=== PATIENT | female | born 1965 | race Caucasian/White ===

== ENCOUNTER → 2016-12-10 | Outpatient (CLI) | payer BC | LOC: MC.RAD 08:49 | DX: Z12.31 Encounter for screening mammogram for malignant neoplasm of breast (principal) ==

== ENCOUNTER → 2016-12-15 | Outpatient (CLI) | payer BC | LOC: MC.RAD 13:30 | DX: N60.01 Solitary cyst of right breast (principal) ==

== ENCOUNTER → 2018-01-27 | Outpatient (CLI) | payer BC | LOC: MC.RAD 12-22 09:40 | DX: Z12.31 Encounter for screening mammogram for malignant neoplasm of breast (principal) ==

== ENCOUNTER → 2019-01-30 | Outpatient (CLI) | payer BC | LOC: MC.RAD 07:14 | DX: Z12.31 Encounter for screening mammogram for malignant neoplasm of breast (principal) ==

== ENCOUNTER → 2020-02-05 | Outpatient (CLI) | payer BC | LOC: MC.RAD 16:00 | DX: Z12.31 Encounter for screening mammogram for malignant neoplasm of breast (principal) ==

== ENCOUNTER → 2021-02-09 | Outpatient (CLI) | payer BC | LOC: MC.RAD 07:23 | DX: Z12.31 Encounter for screening mammogram for malignant neoplasm of breast (principal) ==

== ENCOUNTER → 2022-02-24 | Outpatient (CLI) | payer BC | LOC: MC.RAD 14:50 | DX: Z12.31 Encounter for screening mammogram for malignant neoplasm of breast (principal) ==

== ENCOUNTER → 2024-02-28 | Outpatient (CLI) | payer BC | LOC: MC.RAD 07:21 | DX: Z12.31 Encounter for screening mammogram for malignant neoplasm of breast (principal) ==